=== PATIENT | female | born 1985 | race Two or more races ===

== ENCOUNTER 2017-05-01 02:55 | Emergency (ER) | payer SELFPAY ==
[~2017-05-01] VITALS: Ht 167.6 cm; Wt 54.4 kg
[2017-05-01] MEDS ORDERED: IBUPROFEN 600 MG TABLET PO ONE ×2 (03:28→03:30)
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
--- NOTE | 2017-05-01 03:34 | NUR ---
Dr. Gallardo at bedside for further eval, medicated as ordered for rt head pain.
--- NOTE | 2017-05-01 03:48 | NUR ---
SENT TO CT.
--- NOTE | 2017-05-01 04:26 | NUR ---
Patient sitting up in bed w/ resp even & unlabored, discharged to home in stable condition. Written and verbal after care instructions given. Patient verbalizes understanding of instruction.
[2017-05-01 04:27] VITALS: BP 125/89
== END 2017-05-01 04:30 | disposition home or self-care (01) ==
LOC: ER 02:57
DX: S00.03XA Contusion of scalp, initial encounter (principal); V43.52XA Car driver injured in collision with other type car in traffic accident, initial encounter; Y93.89 Activity, other specified; Y92.488 Other paved roadways as the place of occurrence of the external cause; Y99.8 Other external cause status
CPT/HCPCS: 70450; 84703; 99284; A4606; Z7610